=== PATIENT | female | born 1960 | race Caucasian/White ===

== ENCOUNTER → 2019-07-29 10:59 | Outpatient (BNVA) | payer MEDICARE, SELFPAY | PROVIDERS: Family Provider Family Medicine; PCP Family Medicine; Visit Provider Orthopaedic Surgery | DX: Z48.89 Encounter for other specified surgical aftercare (principal); Z96.641 Presence of right artificial hip joint | CPT/HCPCS: 73502 ==

== ENCOUNTER → 2022-03-08 13:13 | Outpatient (BNVA) | payer MEDICARE, SELFPAY | PROVIDERS: Family Provider Family Medicine; PCP Family Medicine; Visit Provider Nurse Practitioner Family | DX: S69.90XA Unspecified injury of unspecified wrist, hand and finger(s), initial encounter (principal); X58.XXXA Exposure to other specified factors, initial encounter | CPT/HCPCS: 73130 ==

== ENCOUNTER 2022-11-03 07:26 | Inpatient (IN) | payer MEDICARE, SELFPAY ==
[2022-11-03] VITALS (14 sets, daily range): BP systolic 130–193; BP diastolic 67–169; PULSE 64–87; RESP 15–18; TEMP 36.6–37; O2SAT 95–100; BMI 34.8
--- NOTE | 2022-11-03 07:37 | CTR_ITS ---
PROCEDURE INFORMATION: Exam: CT Abdomen And Pelvis With Contrast Exam date and time: 11/03/2022 8:38 AM Age: 62 years old Clinical indication: Abdominal pain; Epigastric; Prior surgery; Surgery date: 6+ months; Surgery type: Back hip; Additional info: Ruq pain, n/v/ TECHNIQUE: Imaging protocol: Computed tomography of the abdomen and pelvis with contrast. Radiation optimization: All CT scans at this facility use at least one of these dose optimization techniques: automated exposure control; mA and/or kV adjustment per patient size (includes targeted exams where dose is matched to clinical indication); or iterative reconstruction. Contrast material: OMNI 350; Contrast volume: 100 ml; Contrast route: INTRAVENOUS (IV); REPORTING DATA: Count of CT and Cardiac NM exams in prior 12 months: This patient has received 0 known CTs and 0 known cardiac nuclear medicine studies in the 12 months prior to the current study. COMPARISON: CR XR hip RT 2-3V wo/w pel* [id number] 07/29/2019 11:06 AM RADIATION DOSE METRICS: Total DLP (mGy-cm): 870.94 FINDINGS: Lungs: Lung bases are clear. Diaphragm: There is a small sliding-type hiatal hernia. Liver: The liver is normal. Gallbladder and bile ducts: Gallbladder is markedly distended. The wall is thin. There is no pericholecystic edema. There is inter genius mixed density material the gallbladder neck consistent with sludge. No discrete calcified stone is seen. The common bile duct is nondilated distally measuring 6 mm diameter. The common hepatic duct measures 9 mm diameter and there is mild intrahepatic biliary dilation. Pancreas: There is fatty atrophy in the pancreatic head and uncinate process. No sign of pancreatitis. No mass. Spleen: There is a 16 mm cyst in the inferior margin of spleen. Splenic size is normal. Adrenal glands: The adrenal glands are unremarkable. Kidneys and ureters: The kidneys are unremarkable. No hydronephrosis or stones. No ureteral dilation. Stomach and bowel: The stomach is decompressed, preventing meaningful evaluation of wall thickness. The small bowel is nondilated. There is mild sigmoid colonic diverticulosis without evidence of diverticulitis. Appendix: The appendix is normal. Intraperitoneal space: There is no free air or significant intraperitoneal free fluid. Vasculature: There is mild aortic atherosclerotic disease. The portal, splenic and superior mesenteric veins are patent. Lymph nodes: There is no lymphadenopathy in the retroperitoneum, mesentery, pelvis or inguinal regions. Urinary bladder: The urinary bladder is decompressed, preventing meaningful evaluation of wall thickness. Reproductive: The uterus is unremarkable. There is no adnexal mass or large cyst. Bones/joints: There is mild degenerative disease in the lumbar spine. The right hip prosthesis is intact and well aligned. There is severe degenerative disease at the left hip. No acute fracture. Soft tissues: The abdominal wall is intact. CT/CT abdomen pelvis w con* [id number] IMPRESSION: 1. Markedly distended gallbladder containing sludge. No pericholecystic edema or fluid. Equivocal findings for acute cholecystitis. 2. Mildly dilated intrahepatic ducts and common hepatic duct with nondilated distal common bile duct. Possible ductal obstruction. Consider MRCP. 3. Incidental findings above.
--- NOTE | 2022-11-03 07:43 | ED_ITS ---
HPI - Abdominal Pain General: Chief Complaint: Abdominal Pain Stated Complaint: RUQ ABD PAIN Time Seen by Provider: 11/03/22 07:31 History of Present Illness: Patient presents to the ER by EMS with complaints of right upper quadrant abdominal pain and nausea. Patient says he started 2 days ago. Patient still has her gallbladder with known gallstones. MD elicited complaint: abdominal pain Pain Consistency: constant Location: RUQ Severity: moderate Quality: cramping and aching Radiation: none Migration to: no migration Exacerbating factors: eating Relieving factors: nothing Context: history of similar episodes Associated Symptoms: Reports nausea; Denies chills and fever(s) Review of Systems General: Reports: 10 or more systems reviewed and unremarkable except in HPI and below Const: Denies: fever(s) or chills Eyes: Denies: change in vision ENMT: Denies: throat pain or odynophagia Card: Denies: chest pain or palpitations Resp: Denies: dyspnea, productive cough or non-productive cough GI: Reports: abdominal pain and nausea : Denies: flank pain or difficulty voiding Musc: Denies: neck pain or back pain Skin/Breast: Denies: rash PFSH ED PFSH: Medical History (Updated 11/03/22 @ 11:58 by Conner Braxton DO) Borderline hyperlipidemia Coronary artery disease History of HPV infection Lumbar disc disease Lumbosacral radiculitis Sacroiliitis Surgical History H/O total hip arthroplasty Physical Exam Const: COMMON NORMALS: no acute distress, average body habitus, patient oriented x3, no limitations, healthy appearing, alert and well nourished HENMT: COMMON NORMALS: normocephalic, atraumatic, hearing grossly normal bilaterally, external ears normal, Normal external nose present and moist oral mucous membranes HEAD & SCALP: normocephalic and atraumatic NOSE: Normal external nose present EXTERNAL EAR: Yes external ears normal Eye: COMMON NORMALS: Equal, round and reactive pupils present, EOMs intact bilaterally, conjunctivae normal and no scleral icterus CONJUNCTIVA: Yes conjunctivae normal PUPIL: Yes Equal, round and reactive pupils present Neck/C-Spine: COMMON NORMALS: full ROM, no lymphadenopathy, supple, no meni ngeal signs, no JVD and Thyroid normal THYROID: Thyroid normal Lymph: LYMPHATIC: no lymphadenopathy noted Chest: COMMONS NORMALS: normal inspection of the chest and normal palpation of entire chest wall Resp: COMMON NORMALS: normal respiratory effort, No retractions, No use of accessory muscles and clear to auscultation bilaterally AUSCULTATION: clear to auscultation bilaterally Cardio: COMMON NORMALS: no JVD, regular rate, regular rhythm, S1 normal heart sound present, S2 normal heart sound present, No gallops present (Cardio), No clicks present (Cardio), No murmurs present (Cardio) and No rub (Cardio) RATE : regular rate RHYTHM: regular rhythm HEART SOUNDS: S1 normal heart sound present and S2 normal heart sound present GI: COMMON NORMALS: Soft to palpation INSPECTION: Yes normal to inspection AUSCULTATION: Yes normoactive bowel sounds PALPATION: Yes Soft to palpation, Yes Tenderness to palpation present (GI) Details: RUQ, No Hepatomegaly present, No Splenomegaly present, No Pulsatile mass present and No Rebound tenderness present : COMMON NORMALS: Yes no CVA tenderness BLADDER/KIDNEY EXAM: Yes no CVA tenderness Back/Pelvis: COMMON NORMALS: no CVA tenderness Neuro: COMMON NORMALS: patient oriented x3 SENSORIUM/ORIENTATION: Yes alert MENINGEAL SIGNS: Yes no meningeal signs Course Vital Signs: Vital signs: Vital Signs Temperature 98.3 F 11/03/22 07:27 Pulse Rate 68 11/03/22 11:00 Respiratory Rate 15 11/03/22 11:00 Blood Pressure 177/90 11/03/22 11:00 Pulse Oximetry 97 11/03/22 11:00 Oxygen Delivery Me thod Room Air 11/03/22 11:00 MDM - Abdominal Pain Medical Decision Making Patient presents with right upper quadrant abdominal pain. Patient has a known history of gallstones. Physical exam and imaging and lab work was obtained. Imaging showed markedly distended gallbladder containing sludge equivocal findings for acute cholecystitis, mildly dilated intrahepatic ducts and common hepatic duct. Possible ductal obstruction consider MRCP, lab work showed white count normal at 5.0 metabolic panel showed AST of 739 and ALT of 902 and total bilirubin 0.6, BUN and creatinine were 9 and 0.6. MRCP was ordered but patient has a spinal cord stimulator and therefore cannot undergo MRI. Dr. Emery was consulted he suggested transfer out for an ERCP if we cannot do a MRCP. [facility] in [place] were called [facility] has no beds and [facility] has no one that can do an ERCP. Dr[facility] Mina [facility] was consulted about this patient and he says she does not need a ERCP due to her bilirubin being normal. He says sounds like she is needs her gallbladder taken out. Talked again to Dr. Emery who says it sounds like she does not need her gallbladder taken out due to no evidence of acute cholecystitis at this time. She may have passed a stone and just needs pain control and IV fluids. Dr. Woody was consulted who agreed for inpatient admission for IV fluids and pain medicine. Differential Diagnosis Unlikely abdominal pain, acute appendicitis, calculus of kidney, constipation, diverticulitis, endometriosis, gastroenteritis, pancreatitis or small bowel obstruction Medical Records I reviewed the patient's medical records. Lab Data I reviewed the patient's lab results. 11/03/22 07:34 11/03/22 07:34 Labs/Radiology: Radiology Impressions Abdomen/Pelvis CT 11/03/22 07:37 IMPRESSION: 1. Markedly distended gallbladder containing sludge. No pericholecystic edema or fluid. Equivocal findings for acute cholecystitis. 2. Mildly dilated intrahepatic ducts and common hepatic duct with nondilated distal common bile duct. Possible ductal obstruction. Consider MRCP. 3. Incidental findings above. Laboratory Results WBC 5.0 10^3/uL (4.0-10.0) 11/03/22 07:34 RBC 4.76 10^6/uL (4.1-5.3) 11/03/22 07:34 Hgb 10.8 g/dL (11.5-15.3) L 11/03/22 07:34 Hct 36.8 % (37.0-47.0) L 11/03/22 07:34 MCV 77.3 fl (81-99) L 11/03/22 07:34 MCH 22.7 pg (28.0-34.0) L 11/03/22 07:34 MCHC 29.3 g/dL (30.0-36.0) L 11/03/22 07:34 RDW 16.2 % (12.1-15.1) H 11/03/22 07:34 Plt Count 204 10^3/cmm (130-400) 11/03/22 07:34 MPV 13.0 fL (7.4-10.4) H 11/03/22 07:34 Neut % (Auto) 63.1 % 11/03/22 07:34 Lymph % (Auto) 25.6 % 11/03/22 07:34 [place] % (Auto) 7.7 % 11/03/22 07:34 Eos % (Auto) 2.6 % 11/03/22 07:34 Baso % (Auto) 0.6 % 11/03/22 07:34 Neut # (Auto) 3.13 10^3/uL (1.8-7.7) 11/03/22 07:34 Lymph # (Auto) 1.3 10^3/uL (0.8-4.8) 11/03/22 07:34 [place] # (Auto) 0.4 10^3/uL (0.2-0.9) 11/03/22 07:34 Eos # (Auto) 0.1 10^3/uL (0.0-0.8) 11/03/22 07:34 Baso # (Auto) 0.0 10^3/uL (0.0-0.1) 11/03/22 07:34 Nucleated RBC % (auto) 0 % 11/03/22 07:34 Nucleated RBCs # 0.0 /100WBC 11/03/22 07:34 Sodium 138 mmol/L (136-145) 11/03/22 07:34 Potassium 3.9 mmol/L (3.5-5.1) 11/03/22 07:34 Chloride 99 mmol/L (98-107) 11/03/22 07:34 Carbon Dioxide 27 mmol/L (22-29) 11/03/22 07:34 Anion Gap 15.9 (5-19) 11/03/22 07:34 BUN 9 mg/dL (8-23) 11/03/22 07:34 Creatinine 0.6 mg/dL (0.5-0.9) 11/03/22 07:34 GFR Calculation 101.0 mL/min (90-130) 11/03/22 07:34 Glucose 122 mg/dL (65-115) H 11/03/22 07:34 Calculated Osmolality 286 mOsm/kg (285-295) 11/03/22 07:34 Calcium 9.6 mg/dL (8.5-10.5) 11/03/22 07:34 Magnesium 1.9 mg/dL (1.7-2.3) 11/03/22 07:34 Total Bilirubin 0.6 mg/dL (0.15-1.2) 11/03/22 07:34 AST 739 U/L (0-32) H 11/03/22 07:34 ALT 902 U/L (0-33) H 11/03/22 07:34 Alkaline Phosphatase 285 U/L (35-105) H 11/03/22 07:34 Total Protein 7.4 g/dL (6.6-8.7) 11/03/22 07:34 Albumin 4.1 g/dL (3.5-5.2) 11/03/22 07:34 Globulin 3.3 g/dL (1.3-4.6) 11/03/22 07:34 Lipase 14 U/L (13-60) 11/03/22 07:34 Urine Color Yellow (Yellow) 11/03/22 07:55 Urine Appearance Clear (CLEAR) 11/03/22 07:55 Urine pH 5 (5-7) 11/03/22 07:55 Ur Specific [place] 1.015 (1.005-1.030) 11/03/22 07:55 Urine Protein 1+ (Negative) H 11/03/22 07:55 Urine Glucose (UA) Norm (Normal) 11/03/22 07:55 Urine Ketones Negative (Negative) 11/03/22 07:55 Urine Blood Neg (Negative) 11/03/22 07:55 Urine Nitrate Negative (Negative) 11/03/22 07:55 Urine Bilirubin 1+ (Negative) H 11/03/22 07:55 Urine Urobilinogen 1 mg/dL (Negative) H 11/03/22 07:55 Ur Leukocyte Esterase Trace (Negative) H 11/03/22 07:55 Urine RBC 0-4 /hpf (0-2) H 11/03/22 07:55 Urine WBC 15-25 /hpf (0-5) H 11/03/22 07:55 Ur Squamous Epith Cells 15-25 /hpf (0-5) H 11/03/22 07:55 Amorphous Sediment Not Reportable 11/03/22 07:55 Urine Bacteria Trace /hpf (NONE) 11/03/22 07:55 Urine Mucus 3+ /hpf 11/03/22 07:55 Discharge Plan Discharge Patient Disposition: Admitted As Inpatient Clinical Impression: Right upper quadrant abdominal pain, Nausea & vomiting, Elevated liver enzymes Condition: Stable Prescriptions: No Action ubvuostmcm-aujdqhqrychnf-bikl [Fioricet] 50-300-40 mg capsule 1 cap PO Q8H PRN (Reason: Pain) carisoprodol [Soma] 350 mg tablet 350 mg PO TID guaifenesin [Mucinex] 600 mg tablet extended release 12hr 600 mg PO BID alprazolam 0.25 mg tablet 0.125 mg PO BID PRN (Reason: Anxiety) oxycodone 10 mg tablet 10 mg PO Q6H Multivitamin Women 50 Plus 1 tab PO DAILY Referrals: Ginette Downey MD [Hospitalist] - Coding Level of Care Code ED Plane Tender for Perico Traore
[2022-11-03] MEDS: ondansetron 2 mg/ML SDV 2 mL 4 MG IVP ×4 (07:54→23:06)
[2022-11-03] MEDS: ketorolac 30 mg/mL INJ IVP (07:54)
[2022-11-03 07:59] LABS: Basophils % 0.6 %; Eosinophils # 0.1 10^3/uL (0.0-0.8); Eosinophils % 2.6 %; Hematocrit 36.8 % (37.0-47.0); Hemoglobin 10.8 g/dL (11.5-15.3); Lymphocytes # 1.3 10^3/uL (0.8-4.8); Lymphocytes % 25.6 %; Mean Corpuscular HGB Conc 29.3 g/dL (30.0-36.0); Mean Corpuscular Hemoglobin 22.7 pg (28.0-34.0); Mean Corpuscular Volume 77.3 fl (81-99); Monocytes # 0.4 10^3/uL (0.2-0.9); Monocytes % 7.7 %; Neutrophils # 3.13 10^3/uL (1.8-7.7); Neutrophils % 63.1 %; Nucleated Red Blood Cells % 0 %; Platelet Count 204 10^3/cmm (130-400); Red Blood Count 4.76 10^6/uL (4.1-5.3); Red Cell Distribution Width 16.2 % (12.1-15.1)
[2022-11-03 08:13] LABS: Add Urine Culture? No; Add Urine Microscopic? YES; Bacteria Urine TRACE /hpf; Bilirubin Urine 1+ (Negative); Blood Urine Neg (Negative); Glucose Urine UA Norm (Normal); Ketones Urine Negative (Negative); Leukocyte Esterase Urine Trace (Negative); Mucus Urine 3+ /hpf; Nitrate Urine Negative (Negative); Protein Urine 1+ (Negative); RBC Urine 0-4 /hpf (0-2); Specific Gravity, Urine 1.015 (1.005-1.030); Squamous Epithelial Cell Urine 15-25 /hpf (0-5); Urine Appearance Clear (CLEAR); Urine Color Yellow (Yellow); Urobilinogen Urine 1 mg/dL (Negative); WBC Urine 15-25 /hpf (0-5); pH Urine 5 (5-7)
[2022-11-03 08:16] LABS: Albumin Level 4.1 g/dL (3.5-5.2); Alkaline Phosphatase 285 U/L (35-105); Blood Urea Nitrogen 9 mg/dL (8-23); Calcium 9.6 mg/dL (8.5-10.5); Carbon Dioxide 27 mmol/L (22-29); Chloride 99 mmol/L (98-107); Globulin 3.3 g/dL (1.3-4.6); Glucose 122 mg/dL (65-115); Lipase 14 U/L (13-60); Magnesium 1.9 mg/dL (1.7-2.3); Osmolality Calculated 286 mOsm/kg (285-295); Sodium 138 mmol/L (136-145); Total Bilirubin 0.6 mg/dL (0.15-1.2); Total Protein 7.4 g/dL (6.6-8.7)
[2022-11-03 08:21] LABS: Anion Gap 15.9 (5-19); Potassium 3.9 mmol/L (3.5-5.1)
[2022-11-03 08:28] LABS: Alanine Aminotransferase 902 U/L (0-33); Aspartate Amino Transferase 739 U/L (0-32)
[2022-11-03] MEDS: iohexol 350 mg/mL 500 mL Btl (per mL) IV (08:42)
[2022-11-03] MEDS: fentaNYL 50 mcg/mL INJ 2mL IVP ×2 (09:50→10:57)
[2022-11-03] MEDS: hyDRALAzine 20 mg/mL INJ 1 mL 10 MG IVP (10:59)
[2022-11-03] MEDS: metoclopramide 5 mg/mL SDV 2 mL 10 MG IVP ×2 (12:15→20:20)
--- NOTE | 2022-11-03 13:42 | PM.HP ---
Providers/Chief Complaint Admitting Physician: Forrest Woody MD Chief Complaint: RUQ ABD PAIN History of Present Illness Evelina Andrade is a 62 year old female with no significant past medical history was brought in with chief complaint of worsening right upper quadrant abdominal pain associated with nausea and vomiting going on for the last 2 days, patient has known history of cholelithiasis, she has not had any fever, CT abdomen and pelvis: Showed ?markedly distended gallbladder containing sludge equivocal findings for acute cholecystitis, mildly dilated intrahepatic ducts and common hepatic duct.? Possible ductal obstruction consider MRCP, lab work showed white count normal at 5.0 metabolic panel showed AST of 739 and ALT of 902 and total bilirubin 0.6, BUN and creatinine were 9 and 0.6.? MRCP was ordered but patient has a spinal cord stimulator and therefore cannot undergo MRI.? Case was discussed with surgery initially plan was to transfer her out for possible ERCP, case was discussed with outpatient GI specialist, who at this point things thinks that she does not need ERCP, as the T. bili is normal, possibility of possible gallstone, associated transaminitis exist, they are of the opinion that patient needs cholecystectomy, surgery is of the opinion that she does not need, cholecystectomy for now, it can be done on elective basis, patient is currently being admitted for IV hydration pain control and monitoring of liver function test. Review of Systems General: Reports: 10 or more systems reviewed and unremarkable except in HPI and below Const: Denies: fever(s), chills, body aches, change in appetite or diaphoresis Card: Denies: palpitations, edema, swelling of feet/ankles, dyspnea on exertion, orthopnea or leg pain with exertion Resp: Denies: dyspnea, productive cough, wheezing or pain on inspiration GI: Reports: abdominal pain, nausea and vomiting; Denies: diarrhea or constipation : Denies: flank pain Musc: Denies: back pain, extremity pain or extremity swelling Neuro: Denies: headache(s), difficulty walking or confusion Medications/Allergies Home Medications Medication Instructions Recorded Confirmed Last Taken Type fqoefczftf-jngzpvpbwbabw-nrhuejqp 1 cap PO Q8H PRN Pain 07/29/19 11/03/22 Unknown History 50 mg-300 mg-40 mg capsule (Fioricet) carisoprodol 350 mg tablet (Soma) 350 mg PO TID 07/29/19 11/03/2223 History guaifenesin 600 mg tablet, 600 mg PO BID 07/29/19 11/03/22 Unknown History extended release 12 hr (Mucinex) Multivitamin Women 50 Plus 1 tab PO DAILY 11/03/22 11/03/22 Unknown History alprazolam 0.25 mg tablet 0.125 mg PO BID PRN Anxiety 11/03/22 11/03/22 Unknown History oxycodone 10 mg tablet 10 mg PO Q6H 11/03/22 11/03/22 Unknown History Allergies Allergy/AdvReac Type Severity Reaction Status Date / Time tramadol [From Ultram] Allergy Mild headache Verified 11/03/22 07:32 morphine Allergy Unknown Unknown Verified 11/03/22 07:32 butorphanol [From Stadol] Allergy Unknown Verified 11/03/22 09:42 PFSH Acute PFSH: Medical History (Updated 11/03/22 @ 17:31 by Forrest Woody MD) Borderline hyperlipidemia Coronary artery disease History of HPV infection Lumbar disc disease Lumbosacral radiculitis Sacroiliitis Surgical History H/O total hip arthroplasty Vitals/I&O/Wt Last Vital Signs Temp 98.3 F 11/03/22 07:27 Pulse 83 11/03/22 12:59 Resp 18 11/03/22 12:59 BP 152/70 11/03/22 12:59 Pulse Ox 97 11/03/22 12:59 O2 Del Method Room Air 11/03/22 13:04 Weight last 48 hrs Weight 92.079 kg Physical Exam Const: COMMON NORMALS: patient oriented x3 HENMT: COMMON NORMALS: normocephalic and atraumatic Resp: COMMON NORMALS: clear to auscultation bilaterally AUSCULTATION: clear to auscultation bilaterally Cardio: COMMON NORMALS: regular rate, regular rhythm, S1 normal heart sound present, S2 normal heart sound present, No gallops present (Cardio), No murmurs present (Cardio), No rub (Cardio) and Peripheral pulses 2+ throughout RATE: regular rate RHYTHM: regular rhythm HEART SOUNDS: S1 normal heart sound present and S2 normal heart sound present PERIPHERAL PULSES: Peripheral pulses 2+ throughout GI: COMMON NORMALS: Normal to inspection, nondistended, normoactive bowel sounds present and no masses AUSCULTATION: Yes normoactive bowel sounds PALPATION: Yes No hepatosplenomegaly present RECTAL EXAM: deferred OTHER: epigastric as well as RUQ Abdominal tenderness present. No guarding, no rigidity, no rebound tenderness present. Extremity: COMMON NORMALS: no clubbing, cyanosis or edema and no pedal edema Neuro: COMMON NORMALS: patient oriented x3 Data 11/03/22 07:34 11/03/22 07:34 A&P Assessment and plan (1) Right upper quadrant abdominal pain: (2) Nausea & vomiting: Qualifiers: Vomiting type: unspecified Qualified Code(s): R11.2 - Nausea with vomiting, unspecified (3) Transaminitis: Plan 62 year old female with no significant past medical history was brought in with chief complaint of worsening right upper quadrant abdominal pain associated with nausea and vomiting going on for the last 2 days. Assessment: Right upper quadrant pain: Transaminitis: Intractable nausea vomiting Plan: Follow ultrasound abdomen Monitor CMP Hepatitis panel Serum Tylenol level Continue IV hydration Pain control Antiemetics Empirically on Zosyn CODE STATUS: Full code DVT prophylaxis on Lovenox Attestations Medical Necessity Statement*: Needs to be in hospital for management of transaminitis, monitoring of liver function. Anticipated length of stay greater than 2 midnights Coding Level of Care Code Acute Code for Chg Fwd Diagnoses Right upper quadrant abdominal pain R10.11 Nausea & vomiting R11.2 Vomiting type: unspecified Transaminitis R74.01
[2022-11-03] MEDS: pantoprazole 40 mg SDV IVP (14:34)
[2022-11-03] MEDS: enoxaparin 40 mg/0.4 mL Syringe SUBCUT (14:34)
[2022-11-03] MEDS: sodium chloride 0.9% 1,000 ML 100 ML IV (14:35)
--- NOTE | 2022-11-03 17:29 | USR_ITS ---
PROCEDURE INFORMATION: Exam: US Abdomen, Limited; Right Upper Quadrant Exam date and time: 11/03/2022 7:09 PM Age: 62 years old Clinical indication: Abdominal pain; Acute; Additional info: Transaminitis, ruq pain TECHNIQUE: Imaging protocol: Real time ultrasound of the abdomen with image documentation. Limited exam focused on the right upper quadrant. COMPARISON: CT abdomen pelvis w con* [id number] 11/03/2022 8:38 AM FINDINGS: Liver: Normal. No masses. Gallbladder: Gallbladder wall is thickened measuring 1.0 cm. There are stones in the gallbladder. The gallbladder is distended measuring 10.8 cm. Biliary ducts: Common bile duct is normal in caliber measuring 6 mm. Pancreas: Visualized pancreas is unremarkable. Right kidney: Normal. No mass. No hydronephrosis. US/US abdomen limited [id number] IMPRESSION: 1. Gallbladder wall is thickened measuring 1.0 cm, consistent with cholecystitis. 2. Cholelithiasis. Gallbladder is distended.
[2022-11-03] MEDS: piperacillin-tazobactam 3.375 GM in sodium chloride 0.9% (plus) 50 ML IV (18:01)
[2022-11-03] MEDS: HYDROmorphone 1 mg/mL INJ 1 mL IVP ×2 (18:08→23:05)
[2022-11-04] VITALS: BP 144/74; PULSE 74; RESP 16; TEMP 36.5; O2SAT 95
[2022-11-04] MEDS: sodium chloride 0.9% 1,000 ML 100 ML IV ×2 (00:40→11:41)
[2022-11-04] MEDS: piperacillin-tazobactam 3.375 GM in sodium chloride 0.9% (plus) 50 ML IV ×2 (02:32→09:22)
[2022-11-04] MEDS: metoclopramide 5 mg/mL SDV 2 mL 10 MG IVP (02:40)
[2022-11-04] MEDS: ketorolac 30 mg/mL INJ 15 MG IVP ×2 (03:30→09:41)
[2022-11-04 04:00] VITALS: BP 153/71; PULSE 66; RESP 17; TEMP 36.4; O2SAT 97
[2022-11-04] MEDS: HYDROmorphone 1 mg/mL INJ 1 mL IVP ×2 (05:14→11:41)
[2022-11-04] MEDS: ondansetron 2 mg/ML SDV 2 mL 4 MG IVP ×2 (05:14→11:41)
[2022-11-04 05:50] LABS: Basophils % 0.2 %; Eosinophils % 0.1 %; Hemoglobin 9.9 g/dL (11.5-15.3); Lymphocytes # 0.7 10^3/uL (0.8-4.8); Lymphocytes % 8.1 %; Mean Corpuscular HGB Conc 29.1 g/dL (30.0-36.0); Mean Corpuscular Hemoglobin 23.3 pg (28.0-34.0); Mean Platelet Volume 11.2 fL (7.4-10.4); Monocytes # 0.7 10^3/uL (0.2-0.9); Monocytes % 7.5 %; Neutrophils # 7.51 10^3/uL (1.8-7.7); Neutrophils % 83.4 %; Nucleated Red Blood Cells % 0 %; Platelet Count 226 10^3/cmm (130-400); Red Blood Count 4.25 10^6/uL (4.1-5.3); Red Cell Distribution Width 16.7 % (12.1-15.1)
[2022-11-04 06:02] LABS: Alanine Aminotransferase 480 U/L (0-33); Albumin Level 3.7 g/dL (3.5-5.2); Alkaline Phosphatase 216 U/L (35-105); Anion Gap 13.4 (5-19); Aspartate Amino Transferase 197 U/L (0-32); Blood Urea Nitrogen 11 mg/dL (8-23); Calcium 8.9 mg/dL (8.5-10.5); Carbon Dioxide 26 mmol/L (22-29); Chloride 103 mmol/L (98-107); Globulin 2.5 g/dL (1.3-4.6); Glucose 110 mg/dL (65-115); Osmolality Calculated 288 mOsm/kg (285-295); Potassium 3.4 mmol/L (3.5-5.1); Sodium 139 mmol/L (136-145); Total Bilirubin 0.4 mg/dL (0.15-1.2); Total Protein 6.2 g/dL (6.6-8.7)
[2022-11-04 06:20] LABS: Hepatitis A Antibody IgM Non-Reactive (Nonreactive)
[2022-11-04 08:00] VITALS: BP 130/75; PULSE 65; RESP 16; TEMP 36.8; O2SAT 98
[2022-11-04 11:41] VITALS: RESP 18
[2022-11-04 12:00] VITALS: BP 149/72; PULSE 61; RESP 17; TEMP 36.8; O2SAT 97
[2022-11-04] MEDS: enoxaparin 40 mg/0.4 mL Syringe SUBCUT (13:17)
[2022-11-04] MEDS: pantoprazole 40 mg SDV IVP (13:17)
[2022-11-04] MEDS: ALPRAZolam 0.5 mg Tablet 0.125 MG PO (13:57)
--- NOTE | 2022-11-04 14:27 | P.DS_ITS ---
Discharge Providers Date of Admission: 11/03/22 11:58 Date of Discharge: November 04, 2022 Attending Provider at Admission: Forrest Woody MD Attending Provider at Discharge: Forrest Woody MD Diagnoses at Discharge Discharge Diagnosis (1) Right upper quadrant abdominal pain: Status: Acute (2) Nausea & vomiting: Status: Acute Qualifiers: Vomiting type: unspecified Qualified Code(s): R11.2 - Nausea with vomiting, unspecified (3) Transaminitis: Status: Acute Reason for Visit Reason for Visit: RUQ ABD PAIN Hospital Course Hospital Course 62 year old female with no significant past medical history was brought in with chief complaint of worsening right upper quadrant abdominal pain associated with nausea and vomiting going on for the last 2 days, patient has known history of cholelithiasis, she has not had any fever, CT abdomen and pelvis: Showed ?markedly distended gallbladder containing sludge equivocal findings for acute cholecystitis, mildly dilated intrahepatic ducts and common hepatic duct.? Possible ductal obstruction consider MRCP, lab work showed white count normal at 5.0 metabolic panel showed AST of 739 and ALT of 902 and total bilirubin 0.6, BUN and creatinine were 9 and 0.6.?MRCP was ordered but patient has a spinal cord stimulator and therefore cannot undergo MRI.? Case was discussed with surgery initially plan was to transfer her out for possible ERCP, case was discussed with outpatient GI specialist, who at this point things thinks that she does not need ERCP, as the T. bili is normal, possibility of possible gallstone, associated transaminitis exist, they are of the opinion that patient needs cholecystectomy, surgery is of the opinion that she does not need, cholecystectomy for now, it can be done on elective basis, patient was admitted for IV hydration pain control and monitoring of liver function test.During the hospital stay she was also empirically kept on Zosyn Antiemetics, LFT was monitored, AST ALT alk phos was trending down, total bilirubin was normal, ultrasound abdomen was done which showed: Cholecystitis with cholelithiasis, pain and nausea vomiting had improved during hospital stay, case was rediscussed with surgery, regarding need for cholecystectomy, it was decided upon that, it can be done on elective basis as outpatient,Patient was advised to stay 1 more day to make sure we can monitor her liver function test more closely and continue with IV antibiotics But according to the patient since surgery has to be done as outpatient, she opted to go home, she was discharged on, metronidazole ciprofloxacin, for another 7 days, and has been advised To immediately return to ER, in case of any worsening of symptoms, fever, patient and daughter verbalizes understanding. Currently she is being discharged home with reluctance. Physical Exam Const: COMMON NORMALS: patient oriented x3 HENMT: COMMON NORMALS: normocephalic, atraumatic and hearing grossly normal bilaterally HEAD & SCALP: normocephalic and atraumatic Resp: COMMON NORMALS: clear to auscultation bilaterally AUSCULTATION: clear to auscultation bilaterally Cardio: COMMON NORMALS: regular rate, regular rhythm, S1 normal heart sound present, S2 normal heart sound present, No gallops present (Cardio), No murmurs present (Cardio), No rub (Cardio) and Peripheral pulses 2+ throughout RATE: regular rate RHYTHM: regular rhythm HEART SOUNDS: S1 normal heart sound present and S2 normal heart sound present PERIPHERAL PULSES: Peripheral pulses 2+ throughout GI: COMMON NORMALS: Normal to inspection, nondistended, normoactive bowel sounds present, Soft to palpation, non-tender, No hepatosplenomegaly present and no masses AUSCULTATION: Yes normoactive bowel sounds PALPATION: Yes Soft to palpation and Yes No hepatosplenomegaly present RECTAL EXAM: deferred OTHER: epigastric as well as RUQ Abdominal tenderness present. No guarding, no rigidity, no rebound tenderness present. Extremity: COMMON NORMALS: no clubbing, cyanosis or edema and no pedal edema Neuro: COMMON NORMALS: patient oriented x3 Discharge Data Studies Completed and Pending Completed Studies During Hospitalization Category Date Time Status CT abdomen pelvis w con* [id number] Stat Cat Scan 11/03/22 07:37 Completed US abdomen limited [id number] Routine Ultrasound 11/03/22 17:29 Completed Pending at discharge Category Date Time Status Complete Blood Count w/Auto AM LABS Lab 11/05/22 04:00 Ordered Complete Blood Count w/Auto AM LABS Lab 11/06/22 04:00 Ordered Comprehensive Metabolic Panel AM LABS Lab 11/05/22 04:00 Ordered Comprehensive Metabolic Panel AM LABS Lab 11/06/22 04:00 Ordered Radiology Impressions Abdomen/Pelvis CT 11/03/22 07:37 IMPRESSION: 1. Markedly distended gallbladder containing sludge. No pericholecystic edema or fluid. Equivocal findings for acute cholecystitis. 2. Mildly dilated intrahepatic ducts and common hepatic duct with nondilated distal common bile duct. Possible ductal obstruction. Consider MRCP. 3. Incidental findings above. Abdomen Ultrasound 11/03/22 17:29 IMPRESSION: 1. Gallbladder wall is thickened measuring 1.0 cm, consistent with cholecystitis. 2. Cholelithiasis. Gallbladder is distended. Laboratory Results WBC 9.0 10^3/uL (4.0-10.0) 11/04/22 04:55 RBC 4.25 10^6/uL (4.1-5.3) 11/04/22 04:55 Hgb 9.9 g/dL (11.5-15.3) L 11/04/22 04:55 Hct 34.0 % (37.0-47.0) L 11/04/22 04:55 MCV 80.0 fl (81-99) L 11/04/22 04:55 MCH 23.3 pg (28.0-34.0) L 11/04/22 04:55 MCHC 29.1 g/dL (30.0-36.0) L 11/04/22 04:55 RDW 16.7 % (12.1-15.1) H 11/04/22 04:55 Plt Count 226 10^3/cmm (130-400) 11/04/22 04:55 MPV 11.2 fL (7.4-10.4) H 11/04/22 04:55 Neut % (Auto) 83.4 % 11/04/22 04:55 Lymph % (Auto) 8.1 % 11/04/22 04:55 [place] % (Auto) 7.5 % 11/04/22 04:55 Eos % (Auto) 0.1 % 11/04/22 04:55 Baso % (Auto) 0.2 % 11/04/22 04:55 Neut # (Auto) 7.51 10^3/uL (1.8-7.7) 11/04/22 04:55 Lymph # (Auto) 0.7 10^3/uL (0.8-4.8) L 11/04/22 04:55 [place] # (Auto) 0.7 10^3/uL (0.2-0.9) 11/04/22 04:55 Eos # (Auto) 0.0 10^3/uL (0.0-0.8) 11/04/22 04:55 Baso # (Auto) 0.0 10^3/uL (0.0-0.1) 11/04/22 04:55 Nucleated RBC % (auto) 0 % 11/04/22 04:55 Nucleated RBCs # 0.0 /100WBC 11/04/22 04:55 Sodium 139 mmol/L (136-145) 11/04/22 04:55 Potassium 3.4 mmol/L (3.5-5.1) L 11/04/22 04:55 Chloride 103 mmol/L (98-107) 11/04/22 04:55 Carbon Dioxide 26 mmol/L (22-29) 11/04/22 04:55 Anion Gap 13.4 (5-19) 11/04/22 04:55 BUN 11 mg/dL (8-23) 11/04/22 04:55 Creatinine 0.6 mg/dL (0.5-0.9) 11/04/22 04:55 GFR Calculation 101.0 mL/min (90-130) 11/04/22 04:55 Glucose 110 mg/dL (65-115) 11/04/22 04:55 Calculated Osmolality 288 mOsm/kg (285-295) 11/04/22 04:55 Calcium 8.9 mg/dL (8.5-10.5) 11/04/22 04:55 Magnesium 1.9 mg/dL (1.7-2.3) 11/03/22 07:34 Total Bilirubin 0.4 mg/dL (0.15-1.2) 11/04/22 04:55 AST 197 U/L (0-32) H 11/04/22 04:55 ALT 480 U/L (0-33) H 11/04/22 04:55 Alkaline Phosphatase 216 U/L (35-105) H 11/04/22 04:55 Total Protein 6.2 g/dL (6.6-8.7) L 11/04/22 04:55 Albumin 3.7 g/dL (3.5-5.2) 11/04/22 04:55 Globulin 2.5 g/dL (1.3-4.6) 11/04/22 04:55 Lipase 14 U/L (13-60) 11/03/22 07:34 Urine Color Yellow (Yellow) 11/03/22 07:55 Urine Appearance Clear (CLEAR) 11/03/22 07:55 Urine pH 5 (5-7) 11/03/22 07:55 Ur Specific [place] 1.015 (1.005-1.030) 11/03/22 07:55 Urine Protein 1+ (Negative) H 11/03/22 07:55 Urine Glucose (UA) Norm (Normal) 11/03/22 07:55 Urine Ketones Negative (Negative) 11/03/22 07:55 Urine Blood Neg (Negative) 11/03/22 07:55 Urine Nitrate Negative (Negative) 11/03/22 07:55 Urine Bilirubin 1+ (Negative) H 11/03/22 07:55 Urine Urobilinogen 1 mg/dL (Negative) H 11/03/22 07:55 Ur Leukocyte Esterase Trace (Negative) H 11/03/22 07:55 Urine RBC 0-4 /hpf (0-2) H 11/03/22 07:55 Urine WBC 15-25 /hpf (0-5) H 11/03/22 07:55 Ur Squamous Epith Cells 15-25 /hpf (0-5) H 11/03/22 07:55 Amorphous Sediment Not Reportable 11/03/22 07:55 Urine Bacteria Trace /hpf (NONE) 11/03/22 07:55 Urine Mucus 3+ /hpf 11/03/22 07:55 Hepatitis A IgM Ab Non-reactive (Nonreactive) 11/04/22 04:55 Vitals Last Vital Signs Temp 98.2 F 11/04/22 12:00 Pulse 61 11/04/22 12:00 Resp 17 11/04/22 12:00 BP 149/72 11/04/22 12:00 Pulse Ox 97 11/04/22 12:00 O2 Del Method Room Air 11/04/22 12:00 Discharge Plan Discharge Patient Disposition: Home Condition: Stable Prescriptions: New Colace 100 mg capsule 100 mg PO BID PRN (Reason: constipation) Qty: 20 0RF ondansetron 8 mg tablet,disintegrating 8 mg PO Q6H PRN (Reason: nausea and vomiting) Qty: 30 0RF Reglan 10 mg tablet 10 mg PO Q6H PRN (Reason: nausea and vomiting) Qty: 20 0RF metronidazole 500 mg tablet 500 mg PO BID 7 Days Qty: 14 0RF ciprofloxacin HCl 750 mg tablet 750 mg PO BID Qty: 14 0RF Continued cpdzmfhelt-kcxgmycbxtvxp-kzil [Fioricet] 50-300-40 mg capsule 1 cap PO Q8H PRN (Reason: Pain) carisoprodol [Soma] 350 mg tablet 350 mg PO TID guaifenesin [Mucinex] 600 mg tablet extended release 12hr 600 mg PO BID alprazolam 0.25 mg tablet 0.125 mg PO BID PRN (Reason: Anxiety) oxycodone 10 mg tablet 10 mg PO Q6H Multivitamin Women 50 Plus 1 tab PO DAILY Discharge Orders: Discharge Order (Routine); Ordered 11/04/22 Ordered By: Forrest Woody Referrals: Skip Emery DO [Physician] - 1 week (Sent message to clinic.) Ginette Downey MD [Hospitalist] - (Please call Saturday to schedule appt due to holiday.) Sparkle Weiss FNP [Referring] - (Would like [place] office. Will need a new PCP appointment @ [place]. ) Patient Instructions: Ciprofloxacin (By mouth), Metoclopramide (By mouth), Metronidazole (By mouth), Ondansetron (By mouth), Cholecystitis (ED), Opioid Safety Discharge Attestations Time Spent in Discharge Care*: less than 30 min Quality Metrics Clinical Quality Measures [ No reported AMI, CVA or VTE this stay] Coding Level of Care Code Acute Code for Chg Fwd Diagnoses Right upper quadrant abdominal pain R10.11 Nausea & vomiting R11.2 Vomiting type: unspecified Transaminitis R74.01
[2022-11-04 16:43] VITALS: BP 149/72; PULSE 61; RESP 17; TEMP 36.8; O2SAT 97
[2022-11-07 22:24] LABS: Hepatitis A Antibody Total NON-REACTIVE (NON-REACTIVE)
== END 2022-11-04 15:00 | disposition home or self-care (01) | DRG 446 ==
LOC: ER 12:20 → MEDSURG 12:20
PROVIDERS: Admitting Provider Internal Medicine; Emergency Provider Emergency Medicine; Visit Provider Internal Medicine
DX: K80.00 Calculus of gallbladder with acute cholecystitis without obstruction (principal); Z96.82 Presence of neurostimulator; Z79.891 Long term (current) use of opiate analgesic; E78.5 Hyperlipidemia, unspecified; I25.10 Atherosclerotic heart disease of native coronary artery without angina pectoris
CPT/HCPCS: 36415; 74177; 76705; 80053; 81001; 83690; 83735; 85025; 86708; 86709; 96372; 96374; 96375; 96376; 99285; C9113; J0360; J1170; J1650; J1885; J2405; J2543; J2765; J3010; J7030; Q9967

== ENCOUNTER → 2022-11-14 14:03 | Outpatient (BNVA) | payer MEDICARE, SELFPAY | PROVIDERS: PCP Nurse Practitioner Family; Visit Provider Surgery | DX: K80.20 Calculus of gallbladder without cholecystitis without obstruction (principal) | CPT/HCPCS: 99203 ==

== ENCOUNTER 2022-12-03 09:41 | Day surgery (SDC) | payer MEDICARE, SELFPAY ==
[2022-11-30 09:07] VITALS: BMI 34.2
[2022-12-03] VITALS (13 sets, daily range): BP systolic 149–186; BP diastolic 82–108; PULSE 58–97; RESP 16–18; TEMP 36.2–36.3; O2SAT 95–98
[2022-12-03] MEDS: sodium chloride 0.9% 1,000 ML 30 ML IV (10:20)
--- NOTE | 2022-12-03 10:33 | W.PM.OPSUD ---
Surgery/Procedure H&P Update DATE OF PROCEDURE: December 03, 2022 DATE H&P PERFORMED: 11/14/22 H&P UPDATE INFORMATION: I have reviewed H&P completed within last 30 days, I have examined patient prior to procedure and No changes to prior documentation PLANNED PROCEDURE: Operation Date: 12/03/22 11:20 Proposed Procedures p 08400 lap ramos K80.20(Not Applicable) - Skip Emery DO
--- NOTE | 2022-12-03 10:44 | ANES.PREANE2 ---
Pre-Anesthetic Assessment Height/Weight: Height 1.64 m Weight 92.079 kg Temp Pulse Resp BP Pulse Ox O2 Del Method 97.3 F L 97 18 149/103 96 Room Air 12/03/22 10:04 12/03/22 10:04 12/03/22 10:04 12/03/22 10:04 12/03/22 10:04 12/03/22 10:07 Operation Date: 12/03/22 11:20 Proposed Procedures p 83910 lap ramos K80.20(Not Applicable) - Skip Emery DO Familial anesthetic complications: pONV Was Beta Amelie taken within 24 hours: N/A Was Clonidine taken within 24 hours: N/A Last intake: Intake Last Liquid Date 12/02/22 Last Liquid Time 20:00 Last Solid Date 12/02/22 Last Solid Time 19:00 Social No alcohol and No tobacco Exam alert, oriented x 3, clear to auscultation bilaterally and regular rate & rhythm Airway Mallampati: Class II Dentition: full Hepatic gallstone pancreatitis Neuropsych Neurostimulator - currently turned off Anesthetic Plan ASA status: 2 Anesthesia: General Risk of > 500 ml blood loss (7ml/kg in children): No Medications/Allergies Home Medications Medication Instructions Recorded Confirmed Last Taken Type dtckgytknb-orbrazxaqnmca-cnqfdpoy 1 cap PO Q8H PRN Pain 07/29/19 11/30/22 12/03/22 08:45 History 50 mg-300 mg-40 mg capsule (Fioricet) carisoprodol 350 mg tablet (Soma) 350 mg PO TID 07/29/19 11/30/22 12/02/22 History Multivitamin Women 50 Plus 1 tab PO DAILY 11/03/22 11/30/22 12/02/22 History alprazolam 0.25 mg tablet 0.125 mg PO BID PRN Anxiety 11/03/22 11/30/22 11/08/22 History oxycodone 10 mg tablet 10 mg PO Q6H 11/03/22 11/30/22 12/03/22 08:45 History docusate sodium 100 mg capsule 100 mg PO BID PRN constipation #20 11/04/22 11/30/22 12/02/22 Rx (Colace) caps metoclopramide HCl 10 mg tablet 10 mg PO Q6H PRN nausea and 11/04/22 11/30/2223 Rx (Reglan) vomiting #20 tabs ondansetron 8 mg disintegrating 8 mg PO Q6H PRN nausea and 11/04/22 11/30/22 12/01/22 Rx tablet vomiting #30 tabs Allergies Allergy/AdvReac Type Severity Reaction Status Date / Time tramadol [From Ultram] Allergy Mild headache Verified 11/30/22 09:03 morphine Allergy Unknown Unknown Verified 11/30/22 09:03 butorphanol [From Stadol] Allergy Unknown Verified 11/30/22 09:03 Current Medications Generic Name Dose Route Start Last Admin Trade Name Freq PRN Reason Stop Dose Admin Sodium Chloride 1,000 mls @ 30 mls/hr 12/03/22 10:00 12/03/22 10:20 Sodium Chloride 0.9% IV 12/04/22 09:59 30 mls/hr .Q24H AURELIO Administration PFSH Anesthesia Medical History (Updated 11/14/22 @ 14:54 by Skip Emery DO) Borderline hyperlipidemia Coronary artery disease Elevated liver enzymes History of HPV infection Lumbar disc disease Lumbosacral radiculitis Nausea & vomiting Right upper quadrant abdominal pain Sacroiliitis Transaminitis Surgical History H/O total hip arthroplasty Data Anesthesia Cardiac Studies: No Data to Display
[2022-12-03] MEDS: ceFAZolin 2,000 MG in sodium chloride 0.9% (plus) 50 ML 100 MG IV (11:26)
--- NOTE | 2022-12-03 12:26 | PM.OP ---
Operative Report Date of procedure: December 03, 2022 Pre-op diagnosis: Symptomatic cholelithiasis Post-op diagnosis: same Procedure done: Laparoscopic cholecystectomy Implants: None Specimens removed/disposition: Gallbladder Surgeon: Dr. Skip Emery DO Anesthesia: General Estimated blood loss (mL): 5 Complications: None apparent Brief History: This very pleasant 62-year-old female who presented my office with symptomatic cholelithiasis. Laparoscopic cholecystectomy is indicated. The risks and benefits were explained and documented. Procedure: Patient was wheeled into the operative room and placed on the OR table in a supine position. Abdomen was inspected prepped and draped in usual sterile fashion. Time-out was performed and all present were in agreement. A 15 blade scalp was used to make a stab incision in the left upper quadrant and intra-abdominal insufflation was achieved using a Veress needle. After localizing the tissue incisions were made and a 5 millimeter trocar was placed into the umbilicus as well as 2 in the right upper quadrant. A 12 millimeter trocar was placed in the epigastrium. Gallbladder was grasped and elevated. The triangle of Calot was carefully dissected using blunt dissection and electrocautery until the triangle of [place]ot clearly identified. The cystic duct was clipped proximally and double clipped distally. The duct was then ligated proximally. The cystic artery was doubly clipped and ligated. The gallbladder was then removed from the liver bed using electrocautery. The gallbladder was removed from the abdomen using an Endo-Catch bag through the epigastric incision. The gallbladder was very large and the epigastric incision had to be extended. The liver bed was inspected and no bleeding was seen. The abdomen was irrigated and suctioned. The epigastric incision was closed at the fascia with a Rk-Julio and 0 Vicryl suture in a qpwogj-tq-xxshb fashion x2. All ports removed. Skin was washed and dried. Incisions were closed with 3-0 and 4-O Vicryl in a subcuticular interrupted fashion. Skin glue was applied. Patient tolerated the procedure well.
[2022-12-03] MEDS: lidocaine-epi 2% 20 mL INJ 9 ML INJECTION (12:30)
[2022-12-03] MEDS: fentaNYL 50 mcg/mL INJ 2mL IVP (12:45)
[2022-12-03] MEDS: ondansetron 2 mg/ML SDV 2 mL 4 MG IVP ×2 (12:50→13:15)
[2022-12-03] MEDS: oxyCODONE 5 mg IR Tab/Cap 10 MG PO (13:49)
--- NOTE | 2022-12-03 13:51 | ANE.PACU2 ---
Inpatient post-anesthesia follow up: Airway intact: Yes Vital signs: Temperature 97.1 F Pulse Rate 60 Respiratory Rate 16 Blood Pressure 179/97 Pulse Oximetry 96 Oxygen Delivery Me thod Room Air Oxygen Flow Rate Fraction of Inspir ed Oxygen Hydration adequate: Yes Nausea and vomiting: Yes Pain level: 1 Mental status: Baseline
== END 2022-12-03 14:15 | disposition home or self-care (01) ==
PROVIDERS: PCP Nurse Practitioner Family; Visit Provider Surgery
PROC: 0FT44ZZ Resection of Gallbladder, Percutaneous Endoscopic Approach (ICD-10-PCS; CPT 47562; principal; 2022-12-03 11:10)
DX: K80.10 Calculus of gallbladder with chronic cholecystitis without obstruction (principal); Z96.82 Presence of neurostimulator; Z79.891 Long term (current) use of opiate analgesic; I25.10 Atherosclerotic heart disease of native coronary artery without angina pectoris
CPT/HCPCS: 47562; 88304; J0690; J1100; J1200; J2250; J2370; J2405; J2704; J2710; J3010; J3490; J7030

== ENCOUNTER → 2022-12-19 14:07 | Outpatient (BNVA) | payer MEDICARE, SELFPAY | PROVIDERS: PCP Nurse Practitioner Family; Visit Provider Surgery | DX: Z90.49 Acquired absence of other specified parts of digestive tract (principal); Z98.890 Other specified postprocedural states | CPT/HCPCS: 99024 ==

== ENCOUNTER 2023-02-15 10:51 | Outpatient (CLI) | payer MEDICARE, SELFPAY ==
--- NOTE | 2023-02-15 11:09 | XR_ITS ---
WS: [id number] Left hip, AP and frog-leg views, 02/15/2023 Clinical Data: LEFT HIP JOINT PAIN Comparison: AP pelvis and right hip, 05/29/2019 Findings: No fractures or dislocations are seen. The left hip shows narrowing, sclerosis, loss of normal spheri cher outline of the left femoral head and a left acetabular lip. The soft tissues are not remarkable. The adjacent pelvis is normal. Impression: Moderate osteoarthritis of the left hip Tonnis classification: grade 2: small cysts in femoral head/acetabulum or moderate joint space narrow ing or moderate loss of head sphericity
== END 2023-02-15 10:52 | disposition home or self-care (01) ==
PROVIDERS: PCP Nurse Practitioner Family; Visit Provider Nurse Practitioner Family
DX: M16.12 Unilateral primary osteoarthritis, left hip (principal)
CPT/HCPCS: 73502

== ENCOUNTER → 2023-10-24 14:55 | Outpatient (BNVA) | payer MEDICARE, SELFPAY | PROVIDERS: PCP Nurse Practitioner Family; Visit Provider Nurse Practitioner Family | DX: L57.0 Actinic keratosis (principal); L82.1 Other seborrheic keratosis; L82.0 Inflamed seborrheic keratosis; L81.4 Other melanin hyperpigmentation; D22.62 Melanocytic nevi of left upper limb, including shoulder | CPT/HCPCS: 17000; 17110; 99203 ==

== ENCOUNTER 2023-11-14 12:58 | Outpatient (CLI) | payer MEDICARE, SELFPAY ==
--- NOTE | 2023-11-14 13:08 | XR_ITS ---
WS: [id number] XR knee LT 1-2V [id number] REASON FOR EXAM: KNEE PAIN LEFT FINDINGS: No fracture or focal bone lesion. Medial knee joint space is intact and well preserved. Minimal subchondral sclerosis and minimal osteo phytosis. Minimal narrowing of the lateral knee joint space with minimal subchondral sclerosis. Mild narrowing of the patellofemoral joint space with mild subchondral sclerosis and osteophytosis of the patella. XR/XR knee LT 1-2V [id number] IMPRESSION: Minimal osteoarthritis of the left knee.
--- NOTE | 2023-11-14 13:08 | XR_ITS ---
WS: [email or web address] XR hip BI 2V wo/w pel [id number] REASON FOR EXAM: HIP JOINT PAIN FINDINGS: Total right hip arthroplasty. Components of the arthroplasty are intact and in proper position and alignment. No change compared to 07/29/2019. XR/XR hip BI 2V wo/w pel [id number] IMPRESSION: Stable total right hip arthroplasty.
--- NOTE | 2023-11-14 13:17 | XR_ITS ---
WS: [email or web address] XR knee RT 1-2V [id number] REASON FOR EXAM: R KNEE PAIN FINDINGS: Minimal narrowing of the medial knee joint space with minimal subchondral sclerosis and mild osteophy tosis. Minimal narrowing of the lateral knee joint space with minimal subchondral sclerosis and marginal ost eophytosis. Minimal narrowing of the patellofemoral joint space with mild to moderate subchondral sclerosis and m ild osteophytosis. There is a bone lesion in the anterior mid tibia which has thin sclerotic margin and a bubbly appeara nce. On a previous examination of 05/24/2007 there was a subtle lesion in the same area with a faintl y sclerotic rim. Lesion is now larger and has extended into the tibial eminence. In addition there appears to be a small lesion in the posterior lateral femoral condyle which has a 6 thin sclerotic margin only seen on the lateral view. It appears to have similar characteristics as t he lesion in the anterior tibia. XR/XR knee RT 1-2V [id number] IMPRESSION: Minimal osteoarthritis. Anterior tibial lesion which has slowly progressed and changed character since 05/25/2007. Possibly a second lesion in the posterior lateral femoral condyle which is not readily identifiable on the previous examination. These lesions appear benign however the lesion in the anterior tibia clearly gilmore s slowly and the lesion in the posterior lateral femoral condyle was not identi fiable previously. Possibly these lesions are of cartilage origin. Not enchondromas, possibly rachael dromyxoid fibroma. Further evaluation is needed an MRI would be the study of choice.
== END 2023-11-14 12:59 | disposition home or self-care (01) ==
PROVIDERS: PCP Nurse Practitioner Family; Visit Provider Nurse Practitioner Family
DX: M25.562 Pain in left knee (principal); M25.561 Pain in right knee; M25.552 Pain in left hip; M25.551 Pain in right hip; Z96.641 Presence of right artificial hip joint
CPT/HCPCS: 73521; 73560

== ENCOUNTER 2023-11-22 11:02 | Outpatient (CLI) | payer MEDICARE, SELFPAY ==
--- NOTE | 2023-11-22 11:13 | MM_ITS ---
WS: [id number] SCREENING DIGITAL TOMOSYNTHESIS MAMMOGRAM WITH CAD HISTORY: SCREENING COMPARISON: 12/18/2017, 12/24/2014 Bilateral CC and MLO with tomosynthesis views submitted. Synthetic mammography reviewed. Computer aid ed detection analyzed. Breast composition: There are scattered areas of fibroglandular density. No suspicious masses, microc alcifications or architectural distortion. MM/[place] [id number] IMPRESSION: BI-RADS: 1-Negative FOLLOW UP: 1 Year Follow-up
== END 2023-11-22 11:03 | disposition home or self-care (01) ==
PROVIDERS: PCP Nurse Practitioner Family; Visit Provider Nurse Practitioner Family
DX: Z12.31 Encounter for screening mammogram for malignant neoplasm of breast (principal); R92.323 Mammographic fibroglandular density, bilateral breasts
CPT/HCPCS: 77063; 77067

== ENCOUNTER → 2024-01-08 10:20 | Outpatient (BNVA) | payer MEDICARE, SELFPAY | PROVIDERS: PCP Nurse Practitioner Family; Visit Provider Nurse Practitioner Family | DX: H61.031 Chondritis of right external ear (principal); L82.1 Other seborrheic keratosis; L81.4 Other melanin hyperpigmentation; D22.62 Melanocytic nevi of left upper limb, including shoulder; L57.0 Actinic keratosis; L57.8 Other skin changes due to chronic exposure to nonionizing radiation | CPT/HCPCS: 17000; 99213 ==

== ENCOUNTER → 2024-04-09 15:24 | Outpatient (BNVA) | payer MEDICARE, SELFPAY | PROVIDERS: PCP Nurse Practitioner Family; Visit Provider Nurse Practitioner Family | DX: L82.1 Other seborrheic keratosis (principal); L81.4 Other melanin hyperpigmentation; L57.8 Other skin changes due to chronic exposure to nonionizing radiation; L03.019 Cellulitis of unspecified finger; B35.1 Tinea unguium; D48.5 Neoplasm of uncertain behavior of skin | CPT/HCPCS: 69100; 99214 ==

== ENCOUNTER 2024-09-21 22:16 | Emergency (ER) | payer MEDICARE, SELFPAY ==
[2024-09-21 22:22] VITALS: BP 185/88; PULSE 63; RESP 18; TEMP 36.8; O2SAT 98; BMI 31.0
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
[2024-09-21 22:37] VITALS: BP 156/73; PULSE 64; O2SAT 98
[2024-09-21 22:57] VITALS: BP 177/74; PULSE 61; O2SAT 97
[2024-09-21 23:31] VITALS: BP 160/64; PULSE 62; O2SAT 98
== END 2024-09-21 23:30 | disposition home or self-care (01) ==
PROVIDERS: Emergency Provider Physician Assistant; PCP Nurse Practitioner Family
DX: S70.02XA Contusion of left hip, initial encounter (principal); S80.01XA Contusion of right knee, initial encounter; S09.8XXA Other specified injuries of head, initial encounter; V87.7XXA Person injured in collision between other specified motor vehicles (traffic), initial encounter; I25.10 Atherosclerotic heart disease of native coronary artery without angina pectoris; E78.5 Hyperlipidemia, unspecified
CPT/HCPCS: 70450; 72125; 73502; 73562; 99284

== ENCOUNTER 2025-04-29 13:33 | Outpatient (CLI) | payer MEDICARE, SELFPAY ==
--- NOTE | 2025-04-29 13:44 | MM_ITS ---
WS: [id number] BILATERAL SCREENING DIGITAL TOMOSYNTHESIS MAMMOGRAM WITH CAD HISTORY: SCREENING COMPARISON: 11/22/2023, 12/18/2017 Bilateral CC and MLO views with tomosynthesis and synthetic mammography submitted. Computer aided detection analyzed. Breast composition: There are scattered areas of fibroglandular density. No suspicious masses, microcalcifications or architectural distortion. MM/MM scr BI tomosynthesis [id number] IMPRESSION: BI-RADS: 1 - Negative. FOLLOW UP: 1 Year Follow-up
== END 2025-04-29 13:34 | disposition home or self-care (01) ==
LOC: RAD 13:34
PROVIDERS: PCP Nurse Practitioner Family; Visit Provider Family Medicine
DX: Z12.31 Encounter for screening mammogram for malignant neoplasm of breast (principal); R92.323 Mammographic fibroglandular density, bilateral breasts
CPT/HCPCS: 77063; 77067